=== PATIENT | male | born 1945 | race Caucasian/White ===

== ENCOUNTER → 2021-04-24 | Outpatient (CLI) | payer OTHER ==
[2021-04-24 13:34] LABS: Anion Gap 7 mmol/L (6-16); Blood Urea Nitrogen 7 mg/dL (8-24); Bun/Creatinine Ratio 8.9 (12.0-20.0); CO2, Blood 25 mmol/L (21-32); Calcium, Blood 8.7 mg/dL (8.5-10.1); Chloride, Blood 102 mmol/L (98-108); Creatinine, Blood 0.79 mg/dL (0.60-1.20); Glomerular Filtration Rate >60 (60-); Glucose, Blood 112 mg/dL (70-99); Sodium, Blood 134 mmol/L (136-145)
== END | disposition home or self-care (01) ==
LOC: LAB SHORT 11:12 → LAB 11:12
PROVIDERS: Urology
DX: Z12.5 Encounter for screening for malignant neoplasm of prostate (principal)
CPT/HCPCS: 36415; 80048

== ENCOUNTER 2024-03-02 14:50 | Inpatient (IN) | payer OTHER ==
[~2024-03-02] VITALS: Ht 177.8 cm; Wt 61.0 kg
[2024-03-02 15:22] LABS: Hematocrit 30.9 % (37.0-53.0); Hemoglobin 9.8 g/dL (13.5-17.5); Mean Corpuscular HGB 25.3 pg (26.0-34.0); Mean Corpuscular HGB Conc 31.7 g/dL (31.5-36.5); Mean Corpuscular Volume 80 fL (80-100); Mean Platelet Volume 8.8 fL (9.1-12.4); RDW Coefficient Variation 15.8 % (11.7-14.2); RDW Standard Deviation 45.4 fL (35.1-46.3); Red Blood Cell Count 3.88 M/mm3 (4.30-5.90); White Blood Cell Count 23.18 K/mm3 (4.00-11.30)
[2024-03-02 15:27] LABS: Platelet Count 1132 K/mm3 (150-400)
[2024-03-02 15:34] LABS: Albumin, Blood 2.4 g/dL (3.4-5.0); Albumin/Globulin Ratio 0.5 (0.8-1.8); Bilirubin, Total 0.3 mg/dL (0.1-1.0); Bun/Creatinine Ratio 22.3 (12.0-20.0); Calcium, Blood 9.4 mg/dL (8.5-10.1); Creatinine, Blood 0.54 mg/dL (0.60-1.20); Globulin, Blood 4.5 g/dL (2.2-4.0); Potassium, Blood 4.1 mmol/L (3.5-5.5); Total Protein, Blood 6.9 g/dL (6.4-8.2)
[2024-03-02] MEDS ORDERED: INSULIN AS100 UNIT/8 SC (15:40)
[2024-03-02] MEDS ORDERED: ASPI81CH PO (15:41)
[2024-03-02] MEDS ORDERED: ATOR20 PO (15:41)
[2024-03-02] MEDS ORDERED: AMLO5 PO (15:41)
[2024-03-02] MEDS ORDERED: B-100 COMPLEX100 MG PO (15:42)
[2024-03-02] MEDS ORDERED: IPRAT-ALBUT 0.5-3 ML INH (15:42)
[2024-03-02] MEDS ORDERED: THERA-D2000 UNIT PO (15:42)
[2024-03-02] MEDS ORDERED: LISI20 PO (15:43)
[2024-03-02] MEDS ORDERED: MAGNESIUM OXID500 MG PO (15:43)
[2024-03-02] MEDS ORDERED: ASMANEX220 M14 INH (15:44)
[2024-03-02] MEDS ORDERED: OMEP20ER PO (15:44)
[2024-03-02] MEDS ORDERED: ALBU90OI6 INH (15:45)
[2024-03-02] MEDS ORDERED: SILDENAFIL CIT100 MG PO (15:45)
[2024-03-02] MEDS ORDERED: PROBIOTIC ACID1 EAC7 PO (15:45)
[2024-03-02] MEDS ORDERED: B-1100 M1 PO (15:46)
[2024-03-02] MEDS ORDERED: TAMS.4ER PO (15:46)
[2024-03-02] MEDS ORDERED: STIOLTO RESPIMAT4 G1 INH (15:46)
[2024-03-02 15:54] LABS: BASOPHILS ABSOLUTE MAN 0.23 K/mm3 (0.00-0.23); BASOPHILS PERCENT MAN 1 % (0-2); EOSINOPHILS PERCENT MAN 0 % (0-6); LYMPHOCYTES % ATYPICAL MANUAL 2 % (0-0); LYMPHOCYTES ABSOLUTE MAN 3.01 K/mm3 (0.84-5.20); LYMPHOCYTES PERCENT MAN 11 % (21-46); MONOCYTES ABSOLUTE MAN 0.69 K/mm3 (0.16-1.47); MONOCYTES PERCENT MAN 3 % (4-13); NEUTROPHILS ABSOLUTE MAN 19.23 K/mm3 (1.96-9.15); SEG NEUTROPHILS PERCENT MAN 83 % (41-73); TOTAL CELLS COUNTED 100
[2024-03-02] MEDS ORDERED: Piperacillin/Tazobactam Sod 3.375 GM in NS 100 ML IV ONE (16:25)
[2024-03-02] MEDS ORDERED: Vancomycin HCL 1,250 MG in NS 262.5 ML IV ONE (16:25)
[2024-03-02] MEDS ORDERED: NS 1,000 ML IV SCH ×2 (17:20→21:10)
[2024-03-02 20:17] LABS: Source, Urine Clean Catch
[2024-03-02 20:24] LABS: Appearance, Urine Hazy (Clear); Bilirubin, Urine Neg (Neg); Blood, Urine Neg (Neg); Color, Urine Yellow (P-Yellow); Glucose Qualitative, Urine Neg (Neg); Ketones, Urine Neg (Neg); Leukocyte Esterase, Urine 2+ (Neg); Nitrite, Urine Neg (Neg); Protein, Urine 1+ (Neg); Specific Gravity, Urine 1.015 (1.003-1.022); Urobilinogen, Urine NORM (Normal)
[2024-03-02 20:32] LABS: Red Blood Cells, Urine 0-2 /hpf (0-2); White Blood Cells, Urine 25-50 /hpf (0-5)
[2024-03-02 20:33] LABS: Bacteria Many /hpf; Squamous Epithelial Cells Few /hpf (Few)
[2024-03-02] MEDS ORDERED: Acetaminophen 325 MG TABLET PO PRN (21:10)
[2024-03-02] MEDS ORDERED: Ondansetron HCl 2 MG / ML 2ML Vial IV PRN (21:10)
[2024-03-02] MEDS ORDERED: Ipratropium/Albuterol SulF 2.5-0.5MG/3 ML Amp INH PRN (21:15)
[2024-03-02 23:27] LABS: Adenovirus Not Detected (NOT DETECT); Bordetella pertussis Not Detected (NOT DETECT); Chlamydophila pneumoniae Not Detected (NOT DETECT); Coronavirus 229E Not Detected (NOT DETECT); Coronavirus HKU1 Not Detected (NOT DETECT); Coronavirus NL63 Not Detected (NOT DETECT); Coronavirus OC43 Not Detected (NOT DETECT); Human Metapneumovirus Not Detected (NOT DETECT); Human Rhinovirus/Enterovirus Not Detected (NOT DETECT); Influenza A/2009-H1 Not Detected (NOT DETECT); Influenza A/H1 Not Detected (NOT DETECT); Influenza A/H3 Not Detected (NOT DETECT); Influenza B Not Detected (NOT DETECT); Mycoplasma pneumoniae Not Detected (NOT DETECT); Parainfluenza Virus 1 Not Detected (NOT DETECT); Parainfluenza Virus 2 Not Detected (NOT DETECT); Parainfluenza Virus 3 Not Detected (NOT DETECT); Parainfluenza Virus 4 Not Detected (NOT DETECT); Respiratory Syncytial Virus Not Detected (NOT DETECT); SARS-Cov-2 (COVID-19), BioFire Not Detected (NOT DETECT)
[2024-03-02 23:45] VITALS: BP 128/74
[2024-03-02] MEDS ORDERED: Ipratropium/Albuterol SulF 2.5-0.5MG/3 ML Amp INH SCH (23:45)
[2024-03-02] MEDS ORDERED: Albuterol HFA200 ACT/6.7 GM INH INH PRN (23:45)
[2024-03-03] MEDS ORDERED: Piperacillin/Tazobactam Sod 3.375 GM in NS 100 ML IV SCH
[2024-03-03] MEDS ORDERED: Mometasone Furoate Inhaler 220 mcg 14 ACT INH SCH ×2 (00:30→09:00)
[2024-03-03 04:43] VITALS: BP 118/61
--- NOTE | 2024-03-03 05:18 | NUR ---
SHIFT SUMMARY NOC PT A/O X 4. PLEASANT AND COOPERATIVE WITH CARE. VSS. SBA FWW/CONT. ADMIT FROM ED WITH FROM FLUID COLLECTION IN SURGICAL SITE FROM RECENT PARTIAL REMOVAL OF PANCREAS AND A CHOLECTOMY. PT CAME IN ORIGINALLY WITH C/O OF L SIDED CP WHICH HAS SINCE RESOLVED BEFORE ADMIT TO UNIT. PT HAD ANUP DRAIN IN PLACE THAT FELL OUT A WEEK AGO AND HAS SMALL OPEN INCISION THAT IS COVERED BY MEPILEX THAT IS C/D/I. PT IS AWAITING BED UP AT [facility] WHICH SHOULD BE AVAILABLE THIS AFTERNOON SO PT CAN TRANSFER. PT CURRENTLY RESTING WITH BED IN LOWEST POSITION, AND CALL LIGHT WITHIN REACH.
[2024-03-03 05:28] LABS: BASOPHILS ABSOLUTE AUTO 0.14 K/mm3 (0.00-0.23); BASOPHILS PERCENT AUTO 1 % (0-2); EOSINOPHILS PERCENT AUTO 1 % (0-6); Hematocrit 29.4 % (37.0-53.0); Hemoglobin 9.3 g/dL (13.5-17.5); IMMATURE GRAN ABSOLUTE AUTO 0.15 K/mm3 (0.00-0.10); IMMATURE GRAN PERCENT AUTO 1 % (0-1); LYMPHOCYTES ABSOLUTE AUTO 3.34 K/mm3 (0.84-5.20); LYMPHOCYTES PERCENT AUTO 13 % (21-46); MONOCYTES ABSOLUTE AUTO 2.03 K/mm3 (0.16-1.47); MONOCYTES PERCENT AUTO 8 % (4-13); Mean Corpuscular HGB Conc 31.6 g/dL (31.5-36.5); Mean Corpuscular Volume 79 fL (80-100); Mean Platelet Volume 9.1 fL (9.1-12.4); NEUTROPHILS ABSOLUTE AUTO 19.67 K/mm3 (1.96-9.15); NEUTROPHILS PERCENT AUTO 77 % (41-73); RDW Coefficient Variation 15.8 % (11.7-14.2); RDW Standard Deviation 45.4 fL (35.1-46.3); Red Blood Cell Count 3.72 M/mm3 (4.30-5.90); White Blood Cell Count 25.53 K/mm3 (4.00-11.30)
[2024-03-03 05:42] LABS: Platelet Count 1104 K/mm3 (150-400)
[2024-03-03] MEDS ORDERED: Omeprazole 20 MG CapCR PO SCH (06:00)
[2024-03-03 06:05] LABS: Albumin, Blood 2.3 g/dL (3.4-5.0); Albumin/Globulin Ratio 0.5 (0.8-1.8); Bilirubin, Total 0.4 mg/dL (0.1-1.0); Calcium, Blood 9.2 mg/dL (8.5-10.1); Creatinine, Blood 0.59 mg/dL (0.60-1.20); Globulin, Blood 4.2 g/dL (2.2-4.0); Potassium, Blood 3.8 mmol/L (3.5-5.5); Total Protein, Blood 6.5 g/dL (6.4-8.2)
[2024-03-03] MEDS ORDERED: Ipratropium/Albuterol SulF 2.5-0.5MG/3 ML Amp INH SCH (07:00)
[2024-03-03 07:13] VITALS: BP 119/71
[2024-03-03] MEDS ORDERED: Insulin Human Lispro 100 Units/ML 3ML Syringe SC SCH (07:30)
[2024-03-03] MEDS ORDERED: Lisinopril 20 MG Tab PO SCH (09:00)
[2024-03-03] MEDS ORDERED: Magnesium Oxide 400 MG Tab PO SCH (09:00)
[2024-03-03] MEDS ORDERED: AmLODIPine Besylate 5 MG Tab PO SCH (09:00)
[2024-03-03] MEDS ORDERED: Lactobacil 2-S.Thermo-Bifido 1 1 Cap PO SCH (09:00)
[2024-03-03] MEDS ORDERED: Aspirin 81 MG Chew PO SCH (09:00)
[2024-03-03] MEDS ORDERED: Thiamine HCl 100 MG Tab PO SCH (09:00)
[2024-03-03] MEDS ORDERED: Enoxaparin 40 MG/0.4 ML SYR SC SCH (09:00)
[2024-03-03 15:33] VITALS: BP 110/58
[2024-03-03 15:40] VITALS: BP 116/58
[2024-03-03 16:02] VITALS: BP 116/58
--- NOTE | 2024-03-03 18:10 | NUR ---
SHIFT SUMMARY PT HAS BEEN WITH NO PAIN TODAY. DRESSING INTACT TO L SIDE. UP TO BATHROOM WITH 1 PERSON ASSIST USING FWW. NO RESP DISTRESS NOTED WITH ACTIVITY. FAMILY IN TO VISIT SEVERAL TIMES. PLAN FOR COBRA TRANSFER TO [facility]. REPORT GIVEN TO SETH ELAINE AT [facility] AT 1550 AND [facility] CALLED FOR A CHECKER AND PACKER. AWAITING TRANSFER.
--- NOTE | 2024-03-03 19:25 | NUR ---
PT DISCHARGED IN THE CARE OF AMBULANCE PERSONNEL, COBRA TRANSFER TO [facility].
[2024-03-03] MEDS ORDERED: Atorvastatin 10 MG Tab PO SCH (21:00)
[2024-03-03] MEDS ORDERED: Tamsulosin HCl 0.4 MG Cap PO SCH (21:00)
== END 2024-03-03 19:25 | disposition short-term general hospital (02) | DRG 920 ==
LOC: ER 14:50 → MEDS 21:06 → ENPENDDIS 03-03 16:23 → MEDS 03-03 19:25
PROVIDERS: Nurse Practitioner Acute Care; Student in an Organized Health Care Education/Training Program; ADMIT Student in an Organized Health Care Education/Training Program
DX: T81.89XA Other complications of procedures, not elsewhere classified, initial encounter (principal); D84.9 Immunodeficiency, unspecified; R18.8 Other ascites; Y83.8 Other surgical procedures as the cause of abnormal reaction of the patient, or of later complication, without mention of misadventure at the time of the procedure; J44.9 Chronic obstructive pulmonary disease, unspecified; I10 Essential (primary) hypertension; E11.9 Type 2 diabetes mellitus without complications; E03.9 Hypothyroidism, unspecified; D75.839 Thrombocytosis, unspecified; D64.9 Anemia, unspecified; K21.9 Gastro-esophageal reflux disease without esophagitis; R07.89 Other chest pain; N40.0 Benign prostatic hyperplasia without lower urinary tract symptoms; Z79.4 Long term (current) use of insulin; Z79.82 Long term (current) use of aspirin; Z90.81 Acquired absence of spleen; Z90.49 Acquired absence of other specified parts of digestive tract; Z85.07 Personal history of malignant neoplasm of pancreas
CPT/HCPCS: 0202U; 36415; 71046; 71260; 74177; 80053; 81001; 82947; 83605; 84145; 84484; 85025; 85379; 87077; 87086; 87186; 93005; 93010; 94640; 94664; 94760; 96365-59; 96366; 96367; 99285-25; A9270; J1650; J2543; J3370; J7030; J7050; Q9967

== ENCOUNTER 2024-06-03 08:48 | Emergency (ER) | payer OTHER ==
[~2024-06-03] VITALS: Ht 180.3 cm; Wt 63.5 kg
[~2024-06-03 08:48] MED LIST: ALBU90OI6 INH; AMLO5 PO; ASMANEX220 M14 INH; ASPI81CH PO; ATOR20 PO; B-100 COMPLEX100 MG PO; B-1100 M1 PO; INSULIN AS100 UNIT/8 SC; IPRAT-ALBUT 0.5-3 ML INH; LISI20 PO; MAGNESIUM OXID500 MG PO; OMEP20ER PO; PROBIOTIC ACID1 EAC7 PO; SILDENAFIL CIT100 MG PO; STIOLTO RESPIMAT4 G1 INH; TAMS.4ER PO; THERA-D2000 UNIT PO
[2024-06-03 08:57] VITALS: BP 102/70
[2024-06-03] MEDS ORDERED: VALA500 PO (09:21)
[2024-06-03] MEDS ORDERED: GABA300 PO (09:21)
[2024-06-03] MEDS ORDERED: LIDO700A20 TOP (09:21)
== END 2024-06-03 09:35 | disposition home or self-care (01) ==
LOC: ER 08:48
DX: B02.9 Zoster without complications (principal); J44.9 Chronic obstructive pulmonary disease, unspecified; I10 Essential (primary) hypertension; E11.9 Type 2 diabetes mellitus without complications; Z90.49 Acquired absence of other specified parts of digestive tract; Z85.07 Personal history of malignant neoplasm of pancreas; Z79.4 Long term (current) use of insulin; Z79.82 Long term (current) use of aspirin; Z79.899 Other long term (current) drug therapy
CPT/HCPCS: 99282

== ENCOUNTER 2024-06-26 01:39 | Inpatient (IN) | payer OTHER ==
[~2024-06-26] VITALS: Ht 180.3 cm; Wt 66.3 kg
[~2024-06-26 01:39] MED LIST changes: +GABA300 PO; +LIDO700A20 TOP; +VALA500 PO
[2024-06-26 02:26] LABS: BASOPHILS PERCENT AUTO 1 % (0-2); EOSINOPHILS ABSOLUTE AUTO 0.16 K/mm3 (0.00-0.68); EOSINOPHILS PERCENT AUTO 1 % (0-6); Hematocrit 35.8 % (37.0-53.0); Hemoglobin 11.1 g/dL (13.5-17.5); IMMATURE GRAN ABSOLUTE AUTO 0.07 K/mm3 (0.00-0.10); IMMATURE GRAN PERCENT AUTO 0 % (0-1); LYMPHOCYTES ABSOLUTE AUTO 2.82 K/mm3 (0.84-5.20); LYMPHOCYTES PERCENT AUTO 16 % (21-46); MONOCYTES ABSOLUTE AUTO 1.14 K/mm3 (0.16-1.47); MONOCYTES PERCENT AUTO 7 % (4-13); Mean Corpuscular HGB 23.3 pg (26.0-34.0); Mean Corpuscular Volume 75 fL (80-100); Mean Platelet Volume 8.4 fL (9.1-12.4); NEUTROPHILS ABSOLUTE AUTO 12.91 K/mm3 (1.96-9.15); NEUTROPHILS PERCENT AUTO 75 % (41-73); Platelet Count 841 K/mm3 (150-400); RDW Coefficient Variation 17.2 % (11.7-14.2); RDW Standard Deviation 46.8 fL (35.1-46.3); Red Blood Cell Count 4.77 M/mm3 (4.30-5.90)
[2024-06-26 02:44] LABS: Albumin, Blood 3.5 g/dL (3.4-5.0); Albumin/Globulin Ratio 0.8 (0.8-1.8); Bilirubin, Total 0.3 mg/dL (0.1-1.0); Bun/Creatinine Ratio 15.6 (12.0-20.0); Calcium, Blood 9.2 mg/dL (8.5-10.1); Creatinine, Blood 0.64 mg/dL (0.60-1.20); Globulin, Blood 4.3 g/dL (2.2-4.0); Potassium, Blood 3.7 mmol/L (3.5-5.5); Total Protein, Blood 7.8 g/dL (6.4-8.2)
[2024-06-26] MEDS ORDERED: Lactated Ringer's 1,000 ML IV ONE (03:10)
[2024-06-26] MEDS ORDERED: Morphine Sulfate 4 MG/1 ML Injection IV ONE ×2 (03:10→07:25)
[2024-06-26] MEDS ORDERED: Ondansetron HCl 2 MG / ML 2ML Vial IV ONE (03:10)
[2024-06-26 05:17] LABS: Source, Urine Clean Catch
[2024-06-26 05:25] LABS: Appearance, Urine Clear (Clear); Bilirubin, Urine Neg (Neg); Blood, Urine Neg (Neg); Color, Urine Yellow (P-Yellow); Glucose Qualitative, Urine Neg (Neg); Ketones, Urine Neg (Neg); Leukocyte Esterase, Urine 2+ (Neg); Nitrite, Urine Pos (Neg); Protein, Urine Neg (Neg); Specific Gravity, Urine 1.015 (1.003-1.022); Urobilinogen, Urine NORM (Normal)
[2024-06-26 05:33] LABS: Bacteria Few /hpf; Red Blood Cells, Urine 0-2 /hpf (0-2); Squamous Epithelial Cells Mod /hpf (Few)
[2024-06-26] MEDS ORDERED: CefTRIAXone Sodium 1,000 MG in NS 100 ML IV ONE (07:15)
[2024-06-26] MEDS ORDERED: Ondansetron HCl 2 MG / ML 2ML Vial IV PRN (10:40)
[2024-06-26] MEDS ORDERED: HYDROmorphone HCl/Pf 1MG SYR IV PRN (10:40)
[2024-06-26] MEDS ORDERED: FLU VACC TS2024-25(6MOS UP)/PF 45 MCG/0.5 ML SYRINGE IM SCH (10:45)
--- NOTE | 2024-06-26 15:10 | NUR ---
PATIENT TO FLOOR AT 1508. PIVOT-TRANSFERRED TO FLOOR BED AND ABRUPTLY BECAME FATIGUED. NGT TO LOW-INTERMITTENT SUCTION, DRAINING COPIOUS AMOUNTS OF BROWN LIQUID. LETHARGIC. AFTER TRANSFERRING.
[2024-06-26 15:16] VITALS: BP 93/65
--- NOTE | 2024-06-26 18:36 | NUR ---
ANIMAL TREATMENT INVESTIGATOR REPORTED PATIENT HAS HAD < 30mL OUTPUT IN URINE COLLECTION DEVICE FROM BEAR. BLADDER SCAN YIELDED ALMOST 400mL RETENTION. CHECKED TUBING FOR KINKS OR BENDS AND NONE WERE NOTED. CALL TO DR. QUIROS WHO WILL REVIEW CHART AND CALL WITH NEW ORDERS.
[2024-06-26 19:35] VITALS: BP 78/55
--- NOTE | 2024-06-26 19:38 | NUR ---
END OF SHIFT SUMMARY: A&Ox4. PLEASANT AND COOPERATIVE WITH CARE. CALLS APPROPRIATELY AND IS ABLE TO ADVOCATE NEEDS EFFECTIVELY. AMBULATES INDEPENDENTLY AT BASELINE, BUT HAS BEEN BEDBOUND DUE TO WEAKNESS. CONTINENT OF BOWEL. BEAR FOR CHRONIC RETENTION; TYPICALLY STRAIGHT CATHS AT HOME. TAKES MEDS WHOLE WITH FLUIDS. C/O RLQ PAIN IN ED. NGT TO LOW, INTERMITTENT SUCTION DRAINING COPIOUS AMOUNTS OF BROWN LIQUID. DR. MORA TO BEDSIDE FOR CONSULTATION; NON SURGICAL, OF NOW. SYSTEMIC IMAGING TO MONITOR. BEAR NOT DRAINING URINE; CALL TO PROVIDER WHO INSTRUCTED TO FLUSH AND IF NOT PATENT, REPLACE. BED IN LOWEST POSITION. CALL LIGHT WITHIN REACH. ALL NEEDS MET. REPORT TO ONCOMING NURSE.
[2024-06-26 19:49] VITALS: BP 85/59
[2024-06-26] MEDS ORDERED: Lactated Ringer's 500 ML IV ONE ×2 (20:05→20:10)
[2024-06-26] MEDS ORDERED: Lactobacil 2-S.Thermo-Bifido 1 1 Cap PO SCH (21:00)
[2024-06-27 03:18] VITALS: BP 91/59
[2024-06-27] MEDS ORDERED: Lactated Ringer's 1,000 ML IV SCH (03:50)
--- NOTE | 2024-06-27 04:00 | NUR ---
SHIFT SUMMARY 78 YR M ADMITTED ON 06/26/24. FULL CODE. BEAR FLUSHED THIS SHIFT AND DETERMINED TO BE PATENT. HOWEVER, PT HAS HAD LESS THAN 100 ML OUTPUT OF URINE OF 399. TWO BLADDER SCANS WERE DONE THROUGHOUT SHIFT SHOWING 136 ML, AND 141 ML. HE WAS GIVEN A 500 ML BOLUS OF LR EARLY IN THIS SHIFT FOR LOW BP, AND THIS IS ALL THE FLUID HE HAS HAD HE IS NPO. SPOKE W/ HOSPITALIST AT 0400 AND OBTAINED ORDER FOR LR INFUSION @ 75 ML/HR AND INSTRUCTED TO WATCH FOR AND MONITOR URINE OUTPUT. PT IS ALERT AND ORIENTED AND COOPERATIVE WITH CARE. NG TUBE IS PATENT AND DRAINING WELL. PT HAS HAD NO C/O PAIN OR DISCOMFORT THIS SHIFT. BED IN LOW POSITION AND CALL LIGHT IN REACH.
[2024-06-27 06:08] LABS: Hematocrit 39.9 % (37.0-53.0); Hemoglobin 12.7 g/dL (13.5-17.5); Mean Corpuscular HGB 23.6 pg (26.0-34.0); Mean Corpuscular HGB Conc 31.8 g/dL (31.5-36.5); Mean Corpuscular Volume 74 fL (80-100); RDW Coefficient Variation 17.6 % (11.7-14.2); RDW Standard Deviation 45.3 fL (35.1-46.3); Red Blood Cell Count 5.38 M/mm3 (4.30-5.90)
[2024-06-27 06:32] LABS: Calcium, Blood 9.2 mg/dL (8.5-10.1); Creatinine, Blood 2.46 mg/dL (0.60-1.20); Potassium, Blood 5.4 mmol/L (3.5-5.5)
[2024-06-27 06:44] LABS: Mean Platelet Volume 8.9 fL (9.1-12.4); Platelet Count 698 K/mm3 (150-400); White Blood Cell Count 34.11 K/mm3 (4.00-11.30)
[2024-06-27 07:41] VITALS: BP 113/62
[2024-06-27 07:49] LABS: BAND PERCENT MAN 5 % (0-8); BASOPHILS PERCENT MAN 0 % (0-2); EOSINOPHILS ABSOLUTE MAN 0.34 K/mm3 (0.00-0.68); EOSINOPHILS PERCENT MAN 1 % (0-6); LYMPHOCYTES % ATYPICAL MANUAL 1 % (0-0); LYMPHOCYTES ABSOLUTE MAN 3.41 K/mm3 (0.84-5.20); LYMPHOCYTES PERCENT MAN 9 % (21-46); MONOCYTES ABSOLUTE MAN 2.04 K/mm3 (0.16-1.47); MONOCYTES PERCENT MAN 6 % (4-13); NEUTROPHILS ABSOLUTE MAN 28.31 K/mm3 (1.96-9.15); SEG NEUTROPHILS PERCENT MAN 78 % (41-73); TOTAL CELLS COUNTED 100
[2024-06-27] MEDS ORDERED: Enoxaparin 40 MG/0.4 ML SYR SC SCH (09:00)
[2024-06-27] MEDS ORDERED: NS 1,000 ML IV SCH (09:00)
[2024-06-27] MEDS ORDERED: CefTRIAXone Sodium 1,000 MG in NS 100 ML IV SCH (09:00)
[2024-06-27 12:49] LABS: RETIC HGB EQUIVALENT 23.6 pg (28.20-36.60); RETICULOCYTE ABSOLUTE 0.0516 M/mm3 (0.0200-0.1100); RETICULOCYTE COUNT PERCENT 1.03 % (0.50-2.50)
[2024-06-27] MEDS ORDERED: Voltaren100 GM TOP (13:43)
[2024-06-27] MEDS ORDERED: Naltrexone HCl50 MG PO (13:48)
[2024-06-27 15:01] VITALS: BP 111/63
[2024-06-27] MEDS ORDERED: Mometasone Furoate Inhaler 220 mcg 14 ACT INH SCH (16:35)
[2024-06-27] MEDS ORDERED: Tiotropium Bromide 2.5 MCG/ACT MIST INHAL (10 ACT/4 GM) INH SCH (16:40)
[2024-06-27] MEDS ORDERED: Albuterol HFA200 ACT/6.7 GM INH INH PRN (16:50)
--- NOTE | 2024-06-27 19:20 | NUR ---
END OF SHIFT SUMMARY: A&Ox4. PLEASANT AND COOPERATIVE WITH CARE. CALLS APPROPRIATELY AND IS ABLE TO ADVOCATE NEEDS EFFECTIVELY. SBA TO BSC. BEAR FOR CHRONIC RETENTION WITH LITTLE OUTPUT; BLADDER SCAN YIELDED 146mL. MEDS WHOLE WITH FLUIDS. NGT TO LOW, INTERMITTINT SUCTION; OFF DURING MEALS, BUT BACK ON AFTER DINNER D/T NAUSEA; RELIEF. IRON TO BE ADMINISTERED TONIGHT. MEDICATED x1 C/O PAIN. REPORTS FEELING MUCH BETTER TODAY. BED IN LOWEST POSITION. CALL LIGHT WITHIN REACH. ALL NEEDS MET. REPORT TO ONCOMING NURSE.
[2024-06-27 20:28] VITALS: BP 124/73
[2024-06-27] MEDS ORDERED: Atorvastatin 10 MG Tab PO SCH (21:00)
[2024-06-27] MEDS ORDERED: Iron Dextran 50 MG / ML 2ML Vial IV ONE (21:00)
[2024-06-27] MEDS ORDERED: Tamsulosin HCl 0.4 MG Cap PO SCH (21:00)
[2024-06-27] MEDS ORDERED: Iron Dextran 975 MG in NS 250 ML IV ONE (22:00)
--- NOTE | 2024-06-27 23:55 | NUR ---
IRON DEXTRAN 25MG DOSE ADMIN, NOTED MASSIVE EMESIS WITHIN 5 MIN POST ADMIN. PHARMACY NOIFIED, INSTRUCTED TO CALL MD. MD NOTIFIED, ORDERS TO HOLD FURTHER DOSE ORDERED. PHARMACY NOTIFIED AND INSTRUCTED NURSE TO LET AM RN KNOW HE HADNT RECEIVED THE MED ORDERED SO THE AM MD COULD ASSESS DURING ROUNDS. WILL CONT TO MONITOR PT
--- NOTE | 2024-06-28 00:38 | NUR ---
EMESIS CALMED. NG TUBE TO SUCTION WORKING. HOB ELEVATED. IVF INFUSING. NO NOTED ADVERSE REACTIONS AT THIS TIME. WILL CONT TO MONITOR. CALL LIGHT IN REACH
--- NOTE | 2024-06-28 03:47 | NUR ---
TRANSCRIBING OPERATOR HEAD SUMMARY VSS. ON CLEAR LIQ DIET. BOWEL SOUNDS LOUD, BUT NO BM OF THIS WWRITING. NG TUBE TO LOW SUCTION. NOTE DARK BROWN RETURNS. IVF OF NS AT 125 ML/HR. THREW UP WHEN IV IRON TEAT DONE, MD NOTIFIED AND THE IRON IV WAS DC'D AND PHARMACY REQUESTED THAT AM RN BE NOTIFIED SO AM MD CAN REVIEW/ASSESS POSSIBLE ADMIN IN THE AM. HAS BEEN RESTING QUIETLY AT INTERVALS. HOB ELEVATED FOR RESP COMFORT. PAIN MEDS GIVEN FOR ABD PAIN - SEE MAR FOR DETAILS. O2 AT 1.5L/MIN PER NC. ABLE TO REPOSITION SELF IN BED FOR COMFORT/SKIN MAINTNANCE. CALL LIGHT IN REACH, RAILS UP X 2 AND BED IN LOW POSITION FOR SAFETY. WILL CONT TO MONITOR
[2024-06-28 03:59] VITALS: BP 119/75
[2024-06-28 05:33] LABS: Hemoglobin 10.1 g/dL (13.5-17.5); Mean Corpuscular HGB 23.4 pg (26.0-34.0); Mean Corpuscular HGB Conc 31.6 g/dL (31.5-36.5); Mean Corpuscular Volume 74 fL (80-100); Mean Platelet Volume 8.9 fL (9.1-12.4); Platelet Count 740 K/mm3 (150-400); RDW Coefficient Variation 17.1 % (11.7-14.2); RDW Standard Deviation 45.8 fL (35.1-46.3); Red Blood Cell Count 4.32 M/mm3 (4.30-5.90); White Blood Cell Count 28.82 K/mm3 (4.00-11.30)
[2024-06-28 06:00] LABS: Albumin, Blood 2.6 g/dL (3.4-5.0); Anion Gap 9 mmol/L (3-11); Blood Urea Nitrogen 46 mg/dL (8-24); Bun/Creatinine Ratio 35.1 (12.0-20.0); CO2, Blood 27 mmol/L (21-32); Calcium, Blood 9.1 mg/dL (8.5-10.1); Chloride, Blood 102 mmol/L (98-108); Creatinine, Blood 1.31 mg/dL (0.60-1.20); Glomerular Filtration Rate 56 (60-); Glucose, Blood 139 mg/dL (70-99); Magnesium, Blood 2.1 mg/dL (1.6-2.4); Phosphorus, Blood 3.5 mg/dL (2.5-4.9); Potassium, Blood 4.1 mmol/L (3.5-5.5); Sodium, Blood 134 mmol/L (136-145)
[2024-06-28] MEDS ORDERED: Pantoprazole Sodium 40 MG Injection IV SCH (06:00)
[2024-06-28 06:02] LABS: BAND PERCENT MAN 2 % (0-8); BASOPHILS PERCENT MAN 0 % (0-2); EOSINOPHILS PERCENT MAN 0 % (0-6); LYMPHOCYTES ABSOLUTE MAN 1.44 K/mm3 (0.84-5.20); LYMPHOCYTES PERCENT MAN 5 % (21-46); MONOCYTES ABSOLUTE MAN 0.57 K/mm3 (0.16-1.47); MONOCYTES PERCENT MAN 2 % (4-13); SEG NEUTROPHILS PERCENT MAN 91 % (41-73); TOTAL CELLS COUNTED 100
[2024-06-28 07:37] VITALS: BP 139/78
[2024-06-28] MEDS ORDERED: Lisinopril 20 MG Tab PO SCH (09:00)
[2024-06-28] MEDS ORDERED: AmLODIPine Besylate 5 MG Tab PO SCH (09:00)
[2024-06-28] MEDS ORDERED: Aspirin 81 MG Chew PO SCH (09:00)
[2024-06-28] MEDS ORDERED: Enoxaparin 30 MG/0.3 ML SYR SC SCH (09:00)
[2024-06-28] MEDS ORDERED: Sod Ferric Gluc Complx/Sucrose 125 MG in NS 100 ML IV ONE (14:00)
[2024-06-28 14:54] VITALS: BP 113/71
--- NOTE | 2024-06-28 19:18 | NUR ---
DAY SHIFT SUMMARY: A&Ox4. PLEASANT AND COOPERATIVE WITH CARE. CALLS APPROPRIATELY AND IS ABLE TO ADVOCATE NEEDS EFFECTIVELY. NG TUBE TO LOW, INTERMITTENT SUCTION EXCEPT FOR DURING MEALS, DURING WHICH IT IS TURNED OFF. SOME NAUSEA TODAY AFTER BREAKFAST AND AGAIN AFTER INITIATION OF IRON INFUSION BUT EVENTUALLY RESOLVED. DAUGHTER IN TO VISIT TODAY. WAS ON 125mL/hr NS; STOPPED DUE TO FINE CRACKLES IN LUNG BASES. 600+ mL URINE OUTPUT IN BEAR TODAY. CONTINUES WITH COPIOUS AMOUNTS OF DARK COLORED OUTPUT FROM NG TUBE. BED BATH TODAY. NO C/O ABD PAIN. BED IN LOWEST POSITION. CALL LIGHT WITHIN REACH. REPORT TO ONCOMING RN.
[2024-06-28 19:21] VITALS: BP 113/67
[2024-06-29 03:37] VITALS: BP 117/72
--- NOTE | 2024-06-29 04:27 | NUR ---
SHIFT SUMMARY ADMITTED FOR SBO. FULL CODE. ALSO HAS A UTI. NG TUBE IN PLACE. SURGICAL CONSULT IS DR. MORA. BEAR IN PLACE FOR RETENTION, HE STRAIGHT CATHS AT HOME. CLEAR LIQUID DIET. ANTIB RX ARE SCHEDULED. HE IS A&O X4. 3 LPM O2 IS HIS BASELINE. HX OF PANCREATIC CANCER: PARTIAL PANCREATECTOMY, SPLENECTOMY. HE HAS NOT GOTTEN UP FROM BED THIS SHIFT.
[2024-06-29 06:02] LABS: BASOPHILS ABSOLUTE AUTO 0.05 K/mm3 (0.00-0.23); BASOPHILS PERCENT AUTO 0 % (0-2); EOSINOPHILS ABSOLUTE AUTO 0.03 K/mm3 (0.00-0.68); EOSINOPHILS PERCENT AUTO 0 % (0-6); Hematocrit 29.7 % (37.0-53.0); Hemoglobin 9.5 g/dL (13.5-17.5); IMMATURE GRAN ABSOLUTE AUTO 0.11 K/mm3 (0.00-0.10); IMMATURE GRAN PERCENT AUTO 1 % (0-1); LYMPHOCYTES ABSOLUTE AUTO 1.69 K/mm3 (0.84-5.20); LYMPHOCYTES PERCENT AUTO 8 % (21-46); MONOCYTES ABSOLUTE AUTO 1.52 K/mm3 (0.16-1.47); MONOCYTES PERCENT AUTO 7 % (4-13); Mean Corpuscular HGB 23.4 pg (26.0-34.0); Mean Corpuscular Volume 73 fL (80-100); Mean Platelet Volume 9.1 fL (9.1-12.4); NEUTROPHILS ABSOLUTE AUTO 18.54 K/mm3 (1.96-9.15); NEUTROPHILS PERCENT AUTO 85 % (41-73); NRBC ABSOLUTE 0.02 K/mm3 (0.00-0.02); NRBC Auto 0.1 /100 WBC (0.0-0.2); Platelet Count 718 K/mm3 (150-400); RDW Coefficient Variation 16.9 % (11.7-14.2); RDW Standard Deviation 44.7 fL (35.1-46.3); Red Blood Cell Count 4.06 M/mm3 (4.30-5.90); White Blood Cell Count 21.94 K/mm3 (4.00-11.30)
[2024-06-29 06:30] LABS: Bun/Creatinine Ratio 39.9 (12.0-20.0); Calcium, Blood 9.1 mg/dL (8.5-10.1); Creatinine, Blood 0.73 mg/dL (0.60-1.20); Potassium, Blood 3.8 mmol/L (3.5-5.5)
[2024-06-29 07:18] VITALS: BP 121/72
[2024-06-29] MEDS ORDERED: Enoxaparin 40 MG/0.4 ML SYR SC SCH (09:00)
[2024-06-29] MEDS ORDERED: TPN Consult Notification XX ONE (12:00)
[2024-06-29 14:56] VITALS: BP 107/69
[2024-06-29] MEDS ORDERED: Parenteral Electolytes 40 ML,Potassium Phosphate Dibasic 30 MM,Multivitamins 10 ML,ZINC... IV SCH (17:00)
[2024-06-29 19:52] VITALS: BP 128/65
--- NOTE | 2024-06-29 20:31 | NUR ---
END OF SHIFT SUMMARY: A&Ox4. PLEASANT AND COOPERATIVE WITH CARE. CALLS APPROPRIATELY AND IS ABLE TO ADVOCATE NEEDS EFFECTIVELY. AMBULATED TODAY WITH PT VIA FWW AND 1PA. BEAR PATENT AND DRAINING TO GRAVITY. NO BM TODAY. SEMI-TOLERATING CLEAR LIQUID DIET WITH SOME POSTPRANDIAL NAUSEA. MEDS WHOLE WITH FLUIDS. NO TELE. NO C/O PAIN OR DISCOMFORT. MAINTAININ SPO2 >88% ON 3LPM; RA AT BASELINE. NGT PATENT AND DRAINING TO LOW, INTERMITTENT SUCTION. PT/OT EVALS AND WORKED WITH BOTH. EVALUATED BY CREATIVE PRODUCER AND INITIATED PPN. FAMILY IN TO VISIT. NO PLANS FOR DC OF YET. BED IN LOWEST POSITION. CALL LIGHT WITHIN REACH. ALL NEEDS MET. REPORT TO ONCOMING NURSE.
--- NOTE | 2024-06-30 03:57 | NUR ---
SHIFT SUMMARY ADMITTED FOR SBO, UTI. FULL CODE. NG TUBE IN PLACE ON LOW/INTERMITTENT SUCTION. BEAR IN PLACE FOR RETENTION, HE STRAIGHT CATHS AT HOME. CLEAR LIQUID DIET. PPN INFUSING @ 105 ML/HR. DR. MORA IS SURGICAL CONSULT. ANTIB RX ARE SCHEDULED. MX IRON LABS. HE WILL DC HOME WHEN STABLE. 3 LPM O2 VIA NC.
[2024-06-30 05:25] VITALS: BP 132/64
[2024-06-30 05:55] LABS: BASOPHILS ABSOLUTE AUTO 0.05 K/mm3 (0.00-0.23); BASOPHILS PERCENT AUTO 0 % (0-2); EOSINOPHILS ABSOLUTE AUTO 0.13 K/mm3 (0.00-0.68); EOSINOPHILS PERCENT AUTO 1 % (0-6); Hemoglobin 8.7 g/dL (13.5-17.5); IMMATURE GRAN ABSOLUTE AUTO 0.06 K/mm3 (0.00-0.10); IMMATURE GRAN PERCENT AUTO 0 % (0-1); LYMPHOCYTES ABSOLUTE AUTO 1.82 K/mm3 (0.84-5.20); LYMPHOCYTES PERCENT AUTO 11 % (21-46); MONOCYTES ABSOLUTE AUTO 1.76 K/mm3 (0.16-1.47); MONOCYTES PERCENT AUTO 11 % (4-13); Mean Corpuscular HGB 23.5 pg (26.0-34.0); Mean Corpuscular HGB Conc 32.2 g/dL (31.5-36.5); Mean Corpuscular Volume 73 fL (80-100); Mean Platelet Volume 9.2 fL (9.1-12.4); NEUTROPHILS ABSOLUTE AUTO 12.68 K/mm3 (1.96-9.15); NEUTROPHILS PERCENT AUTO 77 % (41-73); Platelet Count 669 K/mm3 (150-400); RDW Coefficient Variation 16.9 % (11.7-14.2); RDW Standard Deviation 44.3 fL (35.1-46.3)
[2024-06-30 06:17] LABS: Alanine Aminotransfer (ALT/SGP 11 U/L (12-78); Albumin, Blood 2.4 g/dL (3.4-5.0); Albumin/Globulin Ratio 0.6 (0.8-1.8); Alk Phos 77 U/L (50-136); Anion Gap 6 mmol/L (3-11); Aspartate Aminotrans (AST/SGOT 8 U/L (12-37); Bilirubin, Total 0.6 mg/dL (0.1-1.0); Blood Urea Nitrogen 20 mg/dL (8-24); Bun/Creatinine Ratio 35.1 (12.0-20.0); CO2, Blood 30 mmol/L (21-32); Calcium, Blood 8.8 mg/dL (8.5-10.1); Chloride, Blood 102 mmol/L (98-108); Creatinine, Blood 0.57 mg/dL (0.60-1.20); Globulin, Blood 3.7 g/dL (2.2-4.0); Glomerular Filtration Rate 100 (60-); Glucose, Blood 138 mg/dL (70-99); Magnesium, Blood 1.9 mg/dL (1.6-2.4); Phosphorus, Blood 2.1 mg/dL (2.5-4.9); Potassium, Blood 3.6 mmol/L (3.5-5.5); Sodium, Blood 134 mmol/L (136-145); Total Protein, Blood 6.1 g/dL (6.4-8.2); Triglycerides 87 mg/dL (30-160)
[2024-06-30 07:45] VITALS: BP 129/64
[2024-06-30] MEDS ORDERED: Sod Ferric Gluc Complx/Sucrose 125 MG in NS 100 ML IV SCH (16:00)
[2024-06-30 16:24] VITALS: BP 118/70
--- NOTE | 2024-06-30 17:52 | NUR ---
SHIFT SUMMARY: PATIENT A/OX3-4, PLEASANT AND COOPERATIVE c CARE. PATIENT REPORTS NAUSEA AND EPISODE OF EMESIS X2 GREENISH DARK BROWN COLOR RIGHT AFTER HE ATES HIS CL BREAKFAST. PATIENT CURRENTLY NPO, BUT CAN HAVE SMALL AMT OF ICE CHIPS PER DR. EARLY. PATIENT NG TUBE IN PLACED CONNECTED TO LOW INTEMITTENT SUCTION, DRAINING 1700 MLS DARK BROWN/GRENISH COLOR c SOME PARTICLES IN THE CANISTER. PATIENT ON CONTINUES PPN INFUSING AT 105 MLS/HR. PATIENT HAS BEAR FOR ACUTE RETENTION, PATENT DRAINING BHAVYA COLOR URINE TO GRAVITY. PATIENT DENIES GENERALIZED PAIN, CP/PRESSURE, DIZZINESS AND SOB. PATIENT RECEIVED SCHEDULED MEDS PER EMAR. VITAL SIGNS REVIEWED. CALL LIGHT IN REACH.
[2024-06-30 21:30] VITALS: BP 123/64
[2024-07-01 04:08] VITALS: BP 120/65
--- NOTE | 2024-07-01 05:29 | NUR ---
SHIFT SUMMARY PT ALERT AND ORIENTED TIMES 4. PT RUNNING 3L O2 NASAL CANNULA. NG TUBE AT LOW SUCTION AND LOW TO MIDDLE FLUID REMOVED DARK BROWNISH GREEN. BEAR CATH IS DRAINING TO GRAVITY, YELLOW-BHAVYA URINE. PT WAS TAKEN BY IMAGINING FOR CT SCAN. PT APPEARED TO TOLERATE WELL, OFTEN JOKING WITH STAFF. PT TOOK HS MEDICATIONS, MADE NEEDS KNOWN, AND WAS COOPERATIVE RECEPTIVE TO CARE. DID NOT SEE ANY POSTED RESULTS ON CT SCAN. PT APPEARED TO SLEEP ON AND OFF THROUGH THE NIGHT WITHOUT ISSUE. BED IN LOW POSITION, CALL LIGHT WITHIN REACH, RAILS TIMES 2.
[2024-07-01 05:44] LABS: BASOPHILS ABSOLUTE AUTO 0.06 K/mm3 (0.00-0.23); BASOPHILS PERCENT AUTO 0 % (0-2); EOSINOPHILS ABSOLUTE AUTO 0.26 K/mm3 (0.00-0.68); EOSINOPHILS PERCENT AUTO 2 % (0-6); Hematocrit 27.4 % (37.0-53.0); Hemoglobin 8.9 g/dL (13.5-17.5); IMMATURE GRAN ABSOLUTE AUTO 0.09 K/mm3 (0.00-0.10); IMMATURE GRAN PERCENT AUTO 1 % (0-1); LYMPHOCYTES ABSOLUTE AUTO 1.81 K/mm3 (0.84-5.20); LYMPHOCYTES PERCENT AUTO 12 % (21-46); MONOCYTES ABSOLUTE AUTO 2.19 K/mm3 (0.16-1.47); MONOCYTES PERCENT AUTO 14 % (4-13); Mean Corpuscular HGB 23.7 pg (26.0-34.0); Mean Corpuscular HGB Conc 32.5 g/dL (31.5-36.5); Mean Corpuscular Volume 73 fL (80-100); Mean Platelet Volume 9.2 fL (9.1-12.4); NEUTROPHILS ABSOLUTE AUTO 11.15 K/mm3 (1.96-9.15); NEUTROPHILS PERCENT AUTO 72 % (41-73); NRBC ABSOLUTE 0.04 K/mm3 (0.00-0.02); NRBC Auto 0.3 /100 WBC (0.0-0.2); Platelet Count 684 K/mm3 (150-400); RDW Coefficient Variation 16.8 % (11.7-14.2); RDW Standard Deviation 43.7 fL (35.1-46.3); Red Blood Cell Count 3.75 M/mm3 (4.30-5.90); White Blood Cell Count 15.56 K/mm3 (4.00-11.30)
[2024-07-01 06:12] LABS: Albumin, Blood 2.4 g/dL (3.4-5.0); Anion Gap 10 mmol/L (3-11); Blood Urea Nitrogen 17 mg/dL (8-24); Bun/Creatinine Ratio 31.3 (12.0-20.0); CO2, Blood 28 mmol/L (21-32); Calcium, Blood 8.6 mg/dL (8.5-10.1); Chloride, Blood 100 mmol/L (98-108); Creatinine, Blood 0.54 mg/dL (0.60-1.20); Glomerular Filtration Rate 102 (60-); Glucose, Blood 128 mg/dL (70-99); Magnesium, Blood 1.8 mg/dL (1.6-2.4); Potassium, Blood 3.6 mmol/L (3.5-5.5); Sodium, Blood 134 mmol/L (136-145)
[2024-07-01 07:56] VITALS: BP 142/66
--- NOTE | 2024-07-01 15:28 | NUR ---
PT HAD EMESIS, CALLED [facility] TO UPDATE. SHE TO DISCUSS WITH RADIOLOGIST FOR PLAN. WILL EXPECT TO COME TO ROOM FOR PIX. RADIOLOGIST TO ADVISE MEOF NEXT STEP
[2024-07-01 15:40] VITALS: BP 130/70
--- NOTE | 2024-07-01 17:35 | NUR ---
PT PLEASANT TODAY. NO C/O PAIN. IN MIDST OF SMALL BOWEL FOLLOWTHRU. EXPECTING LAST PICTURES ABOUT 1800 THIS PAUL. NG TUBE CLAMPED T/OUT STUDY. RADIOLOGIST TO ADVISE OF NEXT STEP. DID HAVE EMESIS OF ABOUT 500 CC IN BETWEEN FIRST AND SECOND PICS. RADIOLOGIST NOTIFIED . STUDY TO CONTINUE AT THIS TIME. NO FURTHER CONCERNS NOTED TODAY, TPN CONTINUES. BED IN LOW POSITION, CALL LITE IN REACH, CALLS APPROP
--- NOTE | 2024-07-01 18:51 | NUR ---
PUMPER HAND CALLED. PER RADIOLOGIST. LEAVE NG TUBE TURNED OFF SUCTION. WILL TAKE PIC IN AM.
[2024-07-01 19:39] VITALS: BP 139/67
[2024-07-01] MEDS ORDERED: Sod Ferric Gluc Complx/Sucrose 125 MG in NS 100 ML IV SCH (21:00)
[2024-07-02] VITALS (8 sets, daily range): BP systolic 114–119; BP diastolic 64–70
[2024-07-02 06:23] LABS: Hematocrit 30.5 % (37.0-53.0); Hemoglobin 9.8 g/dL (13.5-17.5); Mean Corpuscular HGB 23.4 pg (26.0-34.0); Mean Corpuscular HGB Conc 32.1 g/dL (31.5-36.5); Mean Corpuscular Volume 73 fL (80-100); Mean Platelet Volume 9.5 fL (9.1-12.4); NRBC ABSOLUTE 0.03 K/mm3 (0.00-0.02); NRBC Auto 0.2 /100 WBC (0.0-0.2); Platelet Count 769 K/mm3 (150-400); RDW Coefficient Variation 16.9 % (11.7-14.2); Red Blood Cell Count 4.18 M/mm3 (4.30-5.90); White Blood Cell Count 17.66 K/mm3 (4.00-11.30)
--- NOTE | 2024-07-02 06:27 | NUR ---
SHIFT SUMMARY PT ALERT AND ORIENTED TIMES 4. PT RUNNING 4L O2 NASAL CANNULA. NG TUBE STOPPED BUT STILL IN PLACE, IN HOPES EARLIER SMALL BOWEL FOLLOW UP WITH ORAL CONTRAST WOULD ALLEVIATE PT S CONDITION. PT IS NOW ON CLEAR LIQUID DIET. BEAR CATH IS DRAINING TO GRAVITY, YELLOW-BHAVYA URINE. PT APPEARED TO TOLERATE WELL, OFTEN JOKING WITH STAFF. PT TOOK HS MEDICATIONS, MADE NEEDS KNOWN, AND WAS COOPERATIVE RECEPTIVE TO CARE. AT APPROX 2100 PT HAD EMESIS OF ABOUT 1000 ML, WHICH WAS DARK BLACK GREEN WITH SOME SOLID MATTER MIXED. ADMIN ZOFRAN, PT TOLERATED WELL. MEASURED EMESIS TOOK PICS OF CONTINENCE OF CONTAINER AND LINE. AT ABOUT 2300 PT HAD ANOTHER EMESIS OF ABOUT 1200 ML. SAME CONSISTENCY. TOOK MORE PICTURES AND MADE DECISION TO START NG BACK ON LOW INTER SUCTION WHICH MALINDA WITHIN 15 MIN 800 ML. CONTACTED MORTGAGE ASSISTANT WHO GAVE ORDER FOR X RAY IN THE AM, BUT PT ALREADY HAS X RAY SCHEDULED. AND WITHIN TWO HOURS MALINDA ABOUT 700ML. PT STATED WAS FEELING BETTER AFTER NG WAS RUNNING AND ABLE TO SLEEP. PICTURES TAKEN OF LINES AND DRAINAGE FROM NG TUBE AND PLACED IN PT FILE. NO FURTHER EMESIS EVENTS. PT APPEARED TO SLEEP ON AND OFF THROUGH THE NIGHT WITHOUT ISSUE, WATCHING TV, BED IN LOW POSITION, CALL LIGHT WITHIN REACH, RAILS TIMES 2.
[2024-07-02 07:07] LABS: Bun/Creatinine Ratio 36.4 (12.0-20.0); Calcium, Blood 9.1 mg/dL (8.5-10.1); Creatinine, Blood 0.6 mg/dL (0.60-1.20); Magnesium, Blood 2.1 mg/dL (1.6-2.4); Phosphorus, Blood 3.4 mg/dL (2.5-4.9); Potassium, Blood 3.5 mmol/L (3.5-5.5)
--- NOTE | 2024-07-02 14:30 | NUR ---
notified by chargemaster specialistbarber Matthews that she spoke with dr doll who requested a surgical consult. spoke via phone with dr burgess who staes dr. cintron will see pt in am
[2024-07-02] MEDS ORDERED: Metoclopramide HCl 5MG / ML 2ML Vial IV PRN (17:00)
--- NOTE | 2024-07-02 18:10 | NUR ---
SHIFT SUMMARY PATIENT IN BED THIS SHIFT, AGREEABLE TO REPOSITION. IV TO L AC LEAKING AND MILD PAIN, DC'D. NEW IV STARTED TO R AC. INFUSING PPN, TOLERATING WELL. NG IN PLACE, SUCTION TO LOW INTERMITTENT, GREEN DRAINAGE. BEAR IN PLACE, FREELY FLOWING TO GRAVITY, YELLOW URINE. C/O NAUSEA THIS SHIFT, GIVEN ZOFRAN WITH LITTLE RELIEF, DOC OKAYED FOR REGLAN, WAITING FOR EFFECT. CALL LIGHT IN REACH, ABLE TO MAKE NEEDS KNOWN. CARES ONGOING.
--- NOTE | 2024-07-02 18:29 | NUR ---
PHYSICIAN CONTACT. DR ARVIZU CALLED TO CONFIRM COBRA TRANSFER TO [facility], STATED THEY DO HAVE ROOM AVAILABLE TONIGHT. CHARGES MADE AWARE. PATIENT MADE AWARE. CALLED JULEE DAUGHTER, LEFT MESSAGE.
== END 2024-07-02 22:36 | disposition short-term general hospital (02) | DRG 388 ==
LOC: ER 01:39 → MEDS 10:38
PROVIDERS: Internal Medicine; Student in an Organized Health Care Education/Training Program; ADMIT Family Medicine
PROC: 0D9670Z Drainage of Stomach with Drainage Device, Via Natural or Artificial Opening (ICD-10-PCS; principal; 2024-06-26)
PROC: 3E0336Z Introduction of Nutritional Substance into Peripheral Vein, Percutaneous Approach (ICD-10-PCS; 2024-06-29)
PROC: 0T9B70Z Drainage of Bladder with Drainage Device, Via Natural or Artificial Opening (ICD-10-PCS; 2024-07-01)
DX: K56.51 Intestinal adhesions [bands], with partial obstruction (principal); A41.59 Other Gram-negative sepsis; N17.9 Acute kidney failure, unspecified; E87.1 Hypo-osmolality and hyponatremia; E44.0 Moderate protein-calorie malnutrition; R64 Cachexia; R18.8 Other ascites; Z68.1 Body mass index [BMI] 19.9 or less, adult; N30.00 Acute cystitis without hematuria; E11.65 Type 2 diabetes mellitus with hyperglycemia; J44.9 Chronic obstructive pulmonary disease, unspecified; E78.5 Hyperlipidemia, unspecified; I10 Essential (primary) hypertension; N40.0 Benign prostatic hyperplasia without lower urinary tract symptoms; K21.9 Gastro-esophageal reflux disease without esophagitis; I95.9 Hypotension, unspecified; E83.39 Other disorders of phosphorus metabolism; D75.838 Other thrombocytosis; D50.9 Iron deficiency anemia, unspecified; Z90.81 Acquired absence of spleen; Z90.410 Acquired total absence of pancreas; Z90.49 Acquired absence of other specified parts of digestive tract; Z85.07 Personal history of malignant neoplasm of pancreas; Z79.82 Long term (current) use of aspirin; Z79.811 Long term (current) use of aromatase inhibitors; Z79.899 Other long term (current) drug therapy
CPT/HCPCS: 36415; 51702; 71045; 74018; 74177; 74250; 80048; 80053; 80069; 81001; 82728; 82947; 83036; 83540; 83550; 83690; 83735; 84100; 84478; 85025; 85027; 85045; 87077; 87086; 87186; 94640; 94664; 94760; 96361; 96365-59; 96375; 96376; 97110; 97116; 97162; 97165; 97530; 99285-25; A9270; J0696; J1170; J1650; J1750; J2270; J2405; J2470; J2765; J2916; J7030; J7120; Q9967